=== PATIENT | male | born 1995 | race Hispanic/Latino ===

== ENCOUNTER 2017-09-27 18:13 | Emergency (ER) | payer SELFPAY ==
[2017-09-27] MEDS ORDERED: FENTANYL CITR 100 MCG/2 ML ONE (18:28)
[2017-09-27] MEDS ORDERED: ONDANSETRON 4 MG/2 ML VIAL ONE (18:28)
[2017-09-27] MEDS ORDERED: NA CHLORIDE 0.9% 2,000 ML ONE (18:28)
[2017-09-27] MEDS ORDERED: MORPHINE 10 MG/ML VIAL ONE (19:02)
[2017-09-27] MEDS ORDERED: TETANUS & DIPHTHERIA TOX,ADULT 0.5 ML VIAL ONE (19:03)
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
[2017-09-27 19:19] LABS: Absolute Lymphocytes (CBC) 3.8 K/uL (0.7-4.9); Absolute Neutrophil 14.6 K/uL (1.8-8.0); Basophils % 0.3 % (0-1.3); Eosinophils % 0.6 % (0-4.4); Hematocrit 46.4 % (39.6-49.0); Lymphocytes % 19.5 % (15.3-44.8); MCH 28.8 pg (27.0-35.0); MCV 85.3 fL (80-100); MPV 8.1 fL (7.6-11.3); Monocytes % 4.9 % (3.3-12.3); RBC Red Blood Cell Count 5.45 M/uL (4.33-5.43)
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
[2017-09-27 19:28] LABS: Glomerular Filtration Rate > 60 mL/min (>60); Potassium 3.2 mEq/L (3.6-5.0)
[2017-09-27] MEDS ORDERED: CEFAZOLIN/SWI 1gm 1 GM/10 ML SYR ONE (19:29)
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
== END 2017-09-27 20:25 | disposition short-term general hospital (02) ==
LOC: ER 18:13
DX: S06.5X0A Traumatic subdural hemorrhage without loss of consciousness, initial encounter (principal); S02.40EA Zygomatic fracture, right side, initial encounter for closed fracture; S02.81XA Fracture of other specified skull and facial bones, right side, initial encounter for closed fracture; V28.4XXA Motorcycle driver injured in noncollision transport accident in traffic accident, initial encounter; Z23 Encounter for immunization; Z72.0 Tobacco use
CPT/HCPCS: 36415; 70450; 70486; 71045; 71260; 72125; 74177; 76377; 80048; 85025; 86850; 86900; 86901; 90714; 96361; 96365; 96375; 99285; J0690; J2405; J3010; J7030; Q9967

== ENCOUNTER 2017-12-25 06:15 | Emergency (ER) | payer SELFPAY ==
--- NOTE | 2017-12-25 08:11 | RAD REPORT ---
EXAM DESCRIPTION: CT - Head Brain Wo Cont - 12/25/2017 7:01 am CLINICAL HISTORY: previous hemorrhage;Headache COMPARISON: Facial Bones W/ Mpr dated 09/27/2017; Head Brain Wo Cont dated 11/07/2015Facial Bones W/ M pr dated 09/27/2017; Head Brain Wo Cont dated 11/07/2015; Head C Spine Cap W Con dated 09/27/2017 TECHNIQUE: All CT scans are performed using dose optimization technique as appropriate and may inclu de automated exposure control or mA/KV adjustment according to patient size. FINDINGS: No intracranial hemorrhage, hydrocephalus or extra-axial fluid collection.No areas of brai n edema or evidence of midline shift. The paranasal sinuses and mastoids are clear. The calvarium is intact. IMPRESSION: No acute intracranial abnormality.
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
== END 2017-12-25 08:24 | disposition home or self-care (01) ==
LOC: ER 06:15
DX: G43.909 Migraine, unspecified, not intractable, without status migrainosus (principal); Z87.820 Personal history of traumatic brain injury; Z72.0 Tobacco use
CPT/HCPCS: 70450; 99284

== ENCOUNTER 2018-05-03 20:47 | Emergency (ER) | payer SELFPAY ==
[2018-05-03] MEDS ORDERED: LIDOCAINE 1% MPF 2 ML AMPULE ONE (21:45)
[2018-05-03] MEDS ORDERED: TETANUS & DIPHTHERIA TOX,ADULT 0.5 ML VIAL ONE (21:48)
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
--- NOTE | 2018-05-03 22:58 | EDPHYS ---
Physician Documentation [facility] Name: Jeffrey Anna Age: 22 yrs Sex: Male : 1995 Arrival Date: 05/03/2018 Time: 20:54 Bed 24 Private MD: ED Physician Ham Gilman HPI: 05/03 21:20 This 22 yrs old Male presents to ER via Ambulatory with complaints of jmm Laceration. 21:20 The patient or guardian reports injury. Onset: The symptoms/episode began/occurred jmm acutely, just prior to arrival. Modifying factors: The symptoms are alleviated by nothing, the symptoms are aggravated by nothing. Associated signs and symptoms: Pertinent positives: pain. 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 Patient unsure on tetanus status. Denies other injury. Historical: - Allergies: 20:55 No Known Allergies; aj1 - Home Meds: 20:55 None [Active]; aj1 - PMHx: 20:55 traumatic subdural hematoma; aj1 - PSHx: 20:55 None; aj1 - Immunization history:: Flu vaccine is up to date. - Social history:: Smoking status: Patient uses tobacco products, denies chronic smoking, but will smoke occasionally. - Ebola Screening: : Patient denies travel to an Ebola-affected area in the 21 days before illness onset. ROS: 21:20 Constitutional: Negative for fever, chills, and weight loss, Cardiovascular: Negative jmm for chest pain, palpitations, and edema, Respiratory: Negative for shortness of breath, cough, wheezing, and pleuritic chest pain. 21:20 MS/extremity: Positive for laceration. 21:20 Skin: Positive for laceration(s). 21:20 All other systems are negative. Exam: 21:20 Constitutional: This is a well developed, well nourished patient who is awake, alert, jmm and in no acute distress. Head/Face: atraumatic. Eyes: EOMI, no conjunctival erythema appreciated ENT: Moist Mucus Membranes Neck: Trachea midline, Supple Chest/axilla: Normal chest wall appearance and motion. Cardiovascular: Regular rate and rhythm. No edema appreciated Respiratory: Normal respirations, no respiratory distress appreciated Abdomen/GI: Non distended, soft 21:20 Musculoskeletal/extremity: FROM appreciated to the left thumb, pain on extension, < 2 sec dist cap refill, full radial pulse, NVI. 21:20 Skin: 3 cm laceration noted to the left wrist. 21:20 Neuro: Orientation: is normal, Mentation: is normal, Memory: is normal. 21:20 Psych: Behavior/mood is pleasant, cooperative. 22:54 Musculoskeletal/extremity: Decreased sensation noted to the left thumb, motor function jmm intact. Vital Signs: 20:55 BP 143 / 85; Pulse 97; Resp 18; Temp 98.2; Pulse Ox 99% ; Weight 96.62 kg (R); Height 6 aj1 ft. 1 in. (185.42 cm) (R); Pain 9/10; 22:53 BP 139 / 65; Pulse 86; Resp 16; Pulse Ox 97% on R/A; jb5 20:55 Body Mass Index 28.10 (96.62 kg, 185.42 cm) aj1 Laceration: 22:54 Wound Repair of 4cm ( 1.6in ) subcutaneous laceration to lateral aspect of left wrist. jmm Distal neuro/vascular/tendon intact. Anesthesia: Local anesthetic administered with 4 mls of 1% lidocaine. Wound prep: Moderate cleansing with betadine by me. Skin closed with 7 4-0 Prolene using simple sutures and sterile technique. Patient tolerated well. MDM: 21:50 Patient medically screened. [facility] 22:54 Data reviewed: vital signs, nurses notes. ED course: Patient has decreased sensation to jmm the left thumb, motor function intact. Patient has a possible injury of superficial branch of the radial nerve. Patient advised of the need to follow up with hand surgery. Patient otherwise given wound infection return precautions. Patient understood and agrees with the plan of care.. 22:54 Counseling: I had a detailed discussion with the patient and/or guardian regarding: the [facility] historical points, exam findings, and any diagnostic results supporting the discharge/admit diagnosis, the need for outpatient follow up, to return to the emergency department if symptoms worsen or persist or if there are any questions or concerns that arise at home. Administered Medications: 21:58 Drug: Tetanus-Diphtheria Toxoid Adult 0.5 ml {Digital Research Analyst: [employer]. Exp: mg2 06/02/2020. Lot #: [id number]. } Route: IM; Site: left deltoid; 23:16 Follow up: Response: No adverse reaction mg2 Disposition: 05/04 05:41 Co-signature as Attending Physician, Ham Gilman MD I agree with the assessment and tw4 plan of care. Disposition: 05/03/18 22:57 Discharged to Home. Impression: Wrist Laceration. - Condition is Stable. - Discharge Instructions: Laceration Care, Adult. - Medication Reconciliation Form, Thank You Letter, Antibiotic Education, Prescription Opioid Use form. - Follow up: Shayne Miller MD; When: 1 week; Reason: Recheck today's complaints, Continuance of care, Staple/Suture removal, Re-evaluation by your physician. Signatures: Cristine Garcia RN RN aj1 Abebe Sparks PA PA Ham Hicks MD MD tw4 Mikal Hanley RN RN mg2 Corrections: (The following items were deleted from the chart) 05/03 23:16 22:57 05/03/2018 22:57 Discharged to Home. Impression: Wrist Laceration. Condition is mg2 Stable. Forms are Medication Reconciliation Form, Thank You Letter, Antibiotic Education, Prescription Opioid Use. Follow up: Shayne Miller; When: 1 week; Reason: Recheck today's complaints, Continuance of care, Staple/Suture removal, Re-evaluation by your physician. sergio
== END 2018-05-03 23:16 | disposition home or self-care (01) ==
LOC: ER 20:47
PROC: 0JQH0ZZ Repair Left Lower Arm Subcutaneous Tissue and Fascia, Open Approach (ICD-10-PCS; principal; 2018-05-03)
DX: S61.512A Laceration without foreign body of left wrist, initial encounter (principal); Z23 Encounter for immunization; W26.0XXA Contact with knife, initial encounter; Z72.0 Tobacco use
CPT/HCPCS: 90714; 99284; J2001

== ENCOUNTER 2019-10-04 22:23 | Emergency (ER) | payer SELFPAY ==
[2019-10-04] MEDS ORDERED: TETRACAINE HCL 0.5% 4ML OPTH ONE (23:14)
[2019-10-04] MEDS ORDERED: FLUORESCEIN SODIUM 1 MG/WRAP ONE (23:14)
--- NOTE | 2019-10-04 23:52 | ER ---
Nurse's Notes [facility] Name: Jeffrey Anna Age: 23 yrs Sex: Male : 1995 Arrival Date: 10/04/2019 Time: 22:26 Bed 14 Private MD: Diagnosis: Conjunctivitis-right eye Presentation: 10/03 22:33 Chief complaint: Patient states: "my right eye started to really hurt about the time I jd3 was leaving work. 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 I tried using eye drops and showering and it has just gotten more painful and more blurry.". Coronavirus screen: Proceed with normal triage. Ebola Screen: Patient negative for fever greater than or equal to 101.5 degrees Fahrenheit, and additional compatible Ebola Virus Disease symptoms. Initial Sepsis Screen: Does the patient meet any 2 criteria? No. Patient's initial sepsis screen is negative. Does the patient have a suspected source of infection? No. Patient's initial sepsis screen is negative. Risk Assessment: Do you want to hurt yourself or someone else? Patient reports no desire to harm self or others. Onset of symptoms was October 04, 2019. 22:33 Method Of Arrival: Ambulatory [facility] 22:33 Acuity: PILAR 4 jd3 Triage Assessment: 23:46 General: Appears in no apparent distress. uncomfortable, Behavior is calm, cooperative, vc appropriate for age. Pain: Complains of pain in right eye. 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 - Social history:: Smoking status: Patient reports the use of cigarette tobacco products, smokes one-half pack cigarettes per day. Screenin:40 Abuse screen: Denies threats or abuse. Nutritional screening: No deficits noted. vc Tuberculosis screening: No symptoms or risk factors identified. Fall Risk None identified. Assessment: 22:40 General: Appears in no apparent distress. Behavior is calm, cooperative, appropriate vc for age. Pain: Complains of pain in right eye Alleviated by rest. Neuro: Level of Consciousness is awake, alert, obeys commands, Oriented to person, place, time, situation, Appropriate for age. Cardiovascular: Patient's skin is warm and dry. Respiratory: Airway is patent Respiratory effort is even, unlabored, Respiratory pattern is regular, symmetrical. GI: No deficits noted. : No signs and/or symptoms were reported regarding the genitourinary system. EENT: Reports pain in right eye photophobia. Derm: Skin temperature is warm. Musculoskeletal: Circulation, motion, and sensation intact. Capillary refill < 3 seconds, Range of motion: intact in all extremities. 23:50 Reassessment: Patient appears in no apparent distress at this time. Patient and/or vc family updated on plan of care and expected duration. Pain level reassessed. Patient is alert, oriented x 3, equal unlabored respirations, skin warm/dry/pink. Patient states symptoms have not improved. Vital Signs: 22:36 BP 151 / 92; Pulse 82; Resp 18 S; Temp 98.6(O); Pulse Ox 98% on R/A; Weight 113.4 kg jd3 (R); Height 6 ft. 3 in. (190.50 cm) (R); Pain 9/10; 10/04 00:02 BP 133 / 73; Pulse 65; Resp 17; Pulse Ox 99% on R/A; vc 10/03 22:36 Body Mass Index 31.25 (113.40 kg, 190.50 cm) jd3 Visual Acuity: 10/03 23:03 Left Eye Visual acuity 20/20, ; Right Eye Visual acuity 20/70, ; Both Eyes Visual vc acuity 20/25; With Lenses; ED Course: 22:26 Patient arrived in ED. cl3 22:33 Walter Squires PA is PHCP. cp 22:33 Orly Olivier MD is Attending Physician. cp 22:35 Triage completed. jd3 22:37 Arm band placed on. jd3 22:40 Patient has correct armband on for positive identification. Bed in low position. Call vc light in reach. Side rails up X 1. Pulse ox on. NIBP on. 22:58 Marybeth Portillo, ANA is Primary Nurse. vc 23:40 Assist provider with eye exam of right eye. using fluorescein stain, Performed by Walter VARELA Patient tolerated well. 23:50 Abilio Vazquez MD is Referral Physician. mane 10/04 00:10 Patient did not have IV access during this emergency room visit. IV discontinued. vc Administered Medications: 10/03 23:40 Drug: Tetracaine Drops 0.5 % 1 drops Route: Ophthalmic; Site: right eye; vc 10/04 00:01 Drug: Gentamicin Drops 0.3 % 2 drops Route: Ophthalmic; Site: right eye; vc 00:09 Follow up: Response: No adverse reaction vc Outcome: 10/03 23:51 Discharge ordered by . cp 10/04 00:10 Discharged to home ambulatory. vc Condition: good Discharge instructions given to patient, Instructed on discharge instructions, follow up and referral plans. medication usage, Demonstrated understanding of instructions, follow-up care, medications, Prescriptions given X 1. 00:20 Patient left the ED. vc Signatures: Walter Squires PA PA cp Davies, Jonathon, RN RN Kathy Pickett cl3 Marybeth Portillo RN RN vc
--- NOTE | 2019-10-04 23:52 | EDPHYS ---
Physician Documentation [facility] Name: Jeffrey Anna Age: 23 yrs Sex: Male : 1995 Arrival Date: 10/04/2019 Time: 22:26 Bed 14 Private MD: ED Physician Orly Olivier HPI: 10/03 22:48 This 23 yrs old Male presents to ER via Ambulatory with complaints of Eye Pain.cp 22:48 The patient is experiencing foreign body sensation, pain, to the right eye, caused by cp an unknown mechanism. Onset: The symptoms/episode began/occurred today. Duration: the symptoms are continuous. Associated signs and symptoms: Pertinent negatives: drainage from eye. Patient wears glasses. 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 - Social history:: Smoking status: Patient reports the use of cigarette tobacco products, smokes one-half pack cigarettes per day. ROS: 22:55 Eyes: Positive for foreign body sensation, pain, redness, of the right eye, Negative cp for injury or acute deformity. 22:55 Constitutional: Negative for fever. cp 22:55 ENT: Negative for drainage from ear(s), ear pain, sore throat, difficulty swallowing, difficulty handling secretions. 22:55 Respiratory: Negative for cough, shortness of breath, wheezing. 22:55 Abdomen/GI: Negative for abdominal pain, nausea and vomiting. 22:55 Neuro: Negative for headache. 22:55 All other systems are negative. Exam: 23:40 Constitutional: The patient appears in no acute distress, alert, awake, non-toxic, well cp developed, well nourished, uncomfortable. 23:40 Head/Face: Normocephalic, atraumatic. cp 23:40 Eyes: Periorbital structures: appear normal, Pupils: equal, round, and reactive to light and accomodation, Extraocular movements: intact throughout, Conjunctiva: exudate, in the right eye, injected, in the right eye, Corneas: abrasion, is not appreciated, foreign body, is not appreciated, a fluorescein strip employed to appreciate the findings, Anterior chamber: normal, Lids and lashes: appear normal, bilaterally, Examination of the other eye reveals no obvious gross abnormality, left eye. 23:40 ENT: External ear(s): are unremarkable, Nose: is normal, Mouth: is normal. 23:40 Chest/axilla: Inspection: normal. 23:40 Cardiovascular: Rate: normal. 23:40 Respiratory: the patient does not display signs of respiratory distress, Respirations: normal. 23:40 Skin: cellulitis, is not appreciated, no rash present. Vital Signs: 22:36 BP 151 / 92; Pulse 82; Resp 18 S; Temp 98.6(O); Pulse Ox 98% on R/A; Weight 113.4 kg jd3 (R); Height 6 ft. 3 in. (190.50 cm) (R); Pain 9/10; 10/04 00:02 BP 133 / 73; Pulse 65; Resp 17; Pulse Ox 99% on R/A; vc 10/03 22:36 Body Mass Index 31.25 (113.40 kg, 190.50 cm) jd3 Visual Acuity: 10/03 23:03 Left Eye Visual acuity 20/20, ; Right Eye Visual acuity 20/70, ; Both Eyes Visual vc acuity 20/25; With Lenses; MDM: 22:44 Patient medically screened. cp 23:50 Data reviewed: vital signs, nurses notes, I have discussed the patient's cp presentation/case with the attending Emergency Department Physician; and as a result, I will discharge patient. 23:50 Counseling: I had a detailed discussion with the patient and/or guardian regarding: the cp historical points, exam findings, and any diagnostic results supporting the discharge/admit diagnosis, the need for outpatient follow up, an opthalmologist, to return to the emergency department if symptoms worsen or persist or if there are any questions or concerns that arise at home. Response to treatment: the patient's symptoms have markedly improved after treatment. 10/03 22:48 Order name: Visual Acuity; Complete Time: 23:16 cp 10/03 22:48 Order name: Eye Tray; Complete Time: 23:16 cp 10/03 22:48 Order name: Fluoresene Opth strip; Complete Time: 23:16 cp Administered Medications: 23:40 Drug: Tetracaine Drops 0.5 % 1 drops Route: Ophthalmic; Site: right eye; vc 10/04 00:01 Drug: Gentamicin Drops 0.3 % 2 drops Route: Ophthalmic; Site: right eye; vc 00:09 Follow up: Response: No adverse reaction vc Disposition: 00:25 Chart complete. cp 02:18 Co-signature as Attending Physician, Orly Olivier MD. ma2 Disposition: 10/04/19 23:51 Discharged to Home. Impression: Conjunctivitis - right eye. - Condition is Stable. - Discharge Instructions: Bacterial Conjunctivitis. - Prescriptions for Gentamicin 0.3 % Ophthalmic Drops - instill 1 drop by OPHTHALMIC route every 4 hours for 7 days; 1 bottle. - Medication Reconciliation Form, Thank You Letter, Antibiotic Education, Prescription Opioid Use, Work release form form. - Follow up: Abilio Vazquez MD; When: 1 - 2 days; Reason: symptoms continue. - Problem is new. - Symptoms have improved. Signatures: Walter Squires PA PA cp Davies, Jonathon, RN RN jd3 Orly Olivier MD MD ma2 Marybeth Portillo RN RN vc Corrections: (The following items were deleted from the chart) 00:20 10/03 23:51 10/04/2019 23:51 Discharged to Home. Impression: Conjunctivitis - right vc eye. Condition is Stable. Forms are Medication Reconciliation Form, Thank You Letter, Antibiotic Education, Prescription Opioid Use. Follow up: Abilio Vazquez; When: 1 - 2 days; Reason: symptoms continue. Problem is new. Symptoms have improved. cp
[2019-10-05] MEDS ORDERED: GENTAMICIN 0.3% OPTH DROP 5ML ONE (00:01)
[2019-10-05 00:57] VITALS: TEMP 98.6
[2019-10-05 00:58] VITALS: BP 133/73; O2SAT 99
== END 2019-10-05 00:20 | disposition home or self-care (01) ==
LOC: ER 22:23
DX: H10.9 Unspecified conjunctivitis (principal); F17.210 Nicotine dependence, cigarettes, uncomplicated
CPT/HCPCS: 99284

== ENCOUNTER 2020-11-28 13:12 | Emergency (ER) | payer SELFPAY ==
--- OUTSIDE RECORDS SUMMARY | 2020-11-28 13:15 | XMS REPORT | Continuity of Care Document ---
:1995 Author Organization [facility] t Address [address] [place] [address] Care Team Providers Name Role Phone Manny Dumont Attending Clinician Payers Payer Name Policy Type Policy Number Effective Date Expiration Date S ource Problems This patient has no known problems. Allergies, Adverse Reactions, Alerts Allergy Allergy Status Severity Reaction(s) Onset Inactive Treating Comm ents Source Name Type Date Date Clinician No Known DA Active U [facility] 08-15 [place] Allergie 00:00: d s [address] [place] [address] Medications This patient has no known medications. Procedures This patient has no known procedures. Encounters Start End Encounter Admission Attending Care Care Encounter Source Date/Time Date/Time Type Type Clinicians Facility Department ID 2020-11-08 2020-11-08 Emergency Tavia [facility] [id number] 15:08:00 16:50:00 Marlin Portillo [id number] [place] [id number] [place] [id number] Results Test Description Test Time Test Comments Results Result Comments Source DRUGS OF ABUSE SCREEN UR 2020-09-13 17:50:00 Test Item Value Reference Range Interpretation Comme nts URN COCAINE (test code = NEGATIVE NEGATIVE Gordy chichi cut-off concentration: 300 COCAURN) ng/mL URN CANNABINOIDS (test code = NEGATIVE NEGATIVE Cannabinoids cut-off concentration: CANNABURN) 50 ng/mL URN AMPHETAMINE (test code = NEGATIVE NEGATIVE Amphetamine cut-off concentration: AMPHETURN) 1000 ng/mL URN BARBITURATE (test code = NEGATIVE NEGATIVE Barbiturate cut-off concentration: BARBITURN) 200 ng/mL URN BENZODIAZEPINE (test code NEGATIVE NEGATIVE Benzodiazepine cut-off = BENZOURN) concentration: 200 ng/mL URN OPIATES (test code = POSITIVE NEGATIVE A [facility] ONFIRMED INITIAL SCREENING ONLY; OPIATURN) SUGGEST ADDITIO NALCONFIRMATORY TESTING.Opiates cut-off concentration: 2000 ng/mL URN PHENCYCLIDINE (PCP) (test NEGATIVE NEGATIVE Phencyclidine(PCP) cut-off code = PHENCURN) concentrati on: 25 ng/ml URN METHADONE (test code = NEGATIVE NEGATIVE M ethadone cut-off concentration: 300 METHAURN) ng/mL UA RFLX MICR CULT IF [id number] 03:02:00 Test Item Value Reference Range Interpretation Comments UA GLUCOSE DIPSTICK NORMAL mg/dl NORMAL (test code = DGLUU) UA BILIRUBIN DIPSTICK NEGATIVE mg/dL NEGATIVE (test code = BILU) UA KETONE DIPSTICK NEGATIVE mg/dl NEGATIVE (test code = KETU) UA SPECIFIC GRAVITY 1.015 1.000-1.030 (test code = SGU) UA BLOOD DIPSTICK 10 Baldo/micL NEGATIVE A (test code = RILEY) Baldo/micL UA PH DIPSTICK (test 6.0 5.0-9.0 code = ANDRES) UA PROTEIN DIPSTICK NEGATIVE mg/dl NEGATIVE (test code = PROU) UA UROBILINIOGEN NORMAL mg/dl NORMAL DIPSTICK (test code = URO) UA NITRITE DIPSTICK NEGATIVE NEGATIVE (test code = ROSI) UA LEUKOCYTE ESTERASE NEGATIVE NEGATIVE DIPSTICK (test code = Wilson/micL LEUU) UA WBC (test code = 0-3 WBC/HPF NONE WBCU) UA SQUAMOUS CELLS 5-10 #/hpf (test code = SQU) UA CULTURE NEEDED? NO, WBC<10 Culture Chk Criteria not (test code = UACULT) Criteria met, Ur ine Culture cancelled. Indication for culture: Flank PainSpecimen Description: CLEAN CATCHUA RFLX MICR CULT IF [id number] 02:37:00 Test Item Value Reference Range Interpretation Comments UA GLUCOSE DIPSTICK (test NORMAL mg/dl NORMAL code = DGLUU) UA BILIRUBIN DIPSTICK NEGATIVE mg/dL NEGATIVE (test code = BILU) UA KETONE DIPSTICK (test NEGATIVE mg/dl NEGATIVE code = KETU) UA SPECIFIC GRAVITY (test 1.015 1.000-1.030 code = SGU) UA BLOOD DIPSTICK (test 10 Baldo/micL Baldo/micL NEGATIVE A code = RILEY) UA PH DIPSTICK (test code 6.0 5.0-9.0 = ANDRES) UA PROTEIN DIPSTICK (test NEGATIVE mg/dl NEGATIVE code = PROU) UA UROBILINIOGEN DIPSTICK NORMAL mg/dl NORMAL (test code = URO) UA NITRITE DIPSTICK (test NEGATIVE NEGATIVE code = ROSI) UA LEUKOCYTE ESTERASE NEGATIVE Wilson/micL NEGATIVE DIPSTICK (test code = LEUU) UA WBC (test code = WBCU) WBC/HPF NONE UA CULTURE NEEDED? (test Criteria Culture Chk code = UACULT) Indication for culture: Flank PainSpecimen Description: CLEAN CATCHCBC W/AUTO [id number] 16:17:00 Test Item Value Reference Range Interpretation Comments WHITE BLOOD CELL (test code = 7.3 K/mm3 4.5-11.0 N WBC) RED BLOOD CELL (test code = 5.00 M/mm3 4.40-5.90 N RBC) HEMOGLOBIN (test code = HGB) 13.9 gm/dL 13.0-17.0 N HEMATOCRIT (test code = HCT) 43.1 % 36.0-48.0 N MEAN CELL VOLUME (test code = 86.2 UM3 80.0-94.0 N MCV) MEAN CELL HGB (test code = MCH) 27.8 UUG 25.5-32.5 N MEAN CELL HGB CONCETRATION 32.3 gm/dL 29.0-35.5 N (test code = MCHC) RED CELL DISTRIBUTION WIDTH 14.2 % 11.5-15.0 N (test code = RDW) RED CELL DISTRIBUTION WIDTH SD 44.1 fL 34.8-50.2 N (test code = RDW-SD) PLATELET COUNT (test code = 303 K/mm3 150-400 N PLT) MEAN PLATELET VOLUME (test code 9.1 fl 7.4-10.4 N = MPV) NEUTROPHIL % (test code = NT%) 47.9 % 49.0-76.0 L IMMATURE GRANULOCYTE % (test 0.3 % 0.0-0.4 N code = IG%) LYMPHOCYTE % (test code = LY%) 38.8 % 23.0-38.0 H MONOCYTE % (test code = MO%) 8.6 % 1.0-10.0 N EOSINOPHIL % (test code = EO%) 4.1 % 1.0-5.0 N BASOPHIL % (test code = BA%) 0.3 % 0.0-1.0 N NUCLEATED RBC % (test code = 0.0 % 0.0-0.1 N NRBC%) NEUTROPHIL # (test code = NT#) 3.5 K/mm3 2.4-6.3 N IMMATURE GRANULOCYTE # (test 0.02 x10 3/uL 0.00-0.07 N code = IG#) LYMPHOCYTE # (test code = LY#) 2.8 K/mm3 1.2-4.0 N MONOCYTE # (test code = MO#) 0.6 K/mm3 0.0-0.6 N EOSINOPHIL # (test code = EO#) 0.3 K/MM3 0.0-0.7 N BASOPHIL # (test code = BA#) 0.0 K/mm3 0.0-0.2 N NUCLEATED RBC # (test code = 0.00 X10 3uL 0.00-0.01 N NRBC#) COMPREHENSIVE METABOLIC [id number] 15:56:00 Test Item Value Reference Range Interpretation Comments SODIUM (test code = NA) 135 mmol/l 134.0-147.0 N POTASSIUM (test code = K) 4.4 mmol/L 3.6-5.2 N CHLORIDE (test code = CL) 103 mmol/l 98.0-107.0 N CARBON DIOXIDE (test code = CO2) 27.0 mmol/l 21.0-33.0 N ANION GAP (test code = GAP) 9.4 0-20 N GLUCOSE (test code = GLU) 87 mg/dl 70.0-110.0 N BLOOD UREA NITROGEN (test code = 12 mg/dl 7.0-18.0 N BUN) CREATININE (test code = CREAT) 0.97 mg/dL 0.60-1.30 N GFR NON BLACK (test code = 101 mL/min 110-120 L GFRNONBLACK) GFR BLACK (test code = GFRBLACK) 122 mL/min 133-145 L TOTAL PROTEIN (test code = PROT) 7.4 gm/dL 6.4-8.2 N ALBUMIN (test code = ALB) 3.8 gm/dl 3.2-4.7 N CALCIUM (test code = CA) 8.4 mg/dl 8.0-10.5 N BILIRUBIN TOTAL (test code = 0.4 mg/dl 0.0-1.0 N BILT) SGOT/AST (test code = AST) 24 Units/L 15-37 N SGPT/ALT (test code = ALT) 29 Units/L 12.0-78.0 N ALKALINE PHOSPHATASE TOTAL (test 61 Units/L 50.0-136.0 N code = ALKP) COMPREHENSIVE METABOLIC [id number] 15:49:00 Test Item Value Reference Range Interpretation Comments SODIUM (test code = NA) 135 mmol/l 134.0-147.0 N POTASSIUM (test code = K) 4.4 mmol/L 3.6-5.2 N CHLORIDE (test code = CL) 103 mmol/l 98.0-107.0 N CARBON DIOXIDE (test code = CO2) 27.0 mmol/l 21.0-33.0 N ANION GAP (test code = GAP) 9.4 0-20 N GLUCOSE (test code = GLU) mg/dl 70.0-110.0 BLOOD UREA NITROGEN (test code = mg/dl 7.0-18.0 BUN) CREATININE (test code = CREAT) mg/dL 0.60-1.30 GFR NON BLACK (test code = mL/min 110-120 GFRNONBLACK) GFR BLACK (test code = GFRBLACK) mL/min 133-145 TOTAL PROTEIN (test code = PROT) gm/dL 6.4-8.2 ALBUMIN (test code = ALB) gm/dl 3.2-4.7 CALCIUM (test code = CA) mg/dl 8.0-10.5 BILIRUBIN TOTAL (test code = mg/dl 0.0-1.0 BILT) SGOT/AST (test code = AST) Units/L 15-37 SGPT/ALT (test code = ALT) Units/L 12.0-78.0 ALKALINE PHOSPHATASE TOTAL (test Units/L 50.0-136.0 code = ALKP) - CT L-SPINE W/O [id number] 14:16:00 [facility] : 1995 Sex: M FAX: Thor Chen [employer] [phone] Ariel: St: REG Name: STEWART,KENTON FABIEN [facility] : 1995 Age/S: 24/M [address] [facility] Unit: [id number] Loc: E.[address] Phys: Abram Chen [id number] Acct: [id number] Dis Date: Status: REG ER PHONE #: [phone] Exam Date: 09/12/2020 1402 FAX #: [phone] Reason: low back pain EXAMS: CPT CODE: [id number] CT L- SPINE W/O CONTRAST [id number] Dictation location: H37. CT LUMBAR SPINE WITHOUT CONTRAST; SAGITTAL AND CORONAL REFORMATTED VIEWS. HISTORY: low back pain COMPARISON :None. TECHNIQUE: Axial CT images of the lumbar spine were obtained with coronal and sagittal reformatted views. Automated exposure control, iterative reconstruction technique, and/or adjustment of mA and/or kV according to patient's size was utilized for radiation dose reduction. IV CONTRAST: None. FINDINGS: 5 nonrib-bearing lumbar vertebral bodies are noted. The lumbar vertebral alignment is straightened. No lumbar spine fracture or subluxation. No prevertebral soft tissue swelling. At L2-L3, posterior bulging annulus causes up to mild spinal canal stenosis without significant neuroforaminal narrowing. At L4-L5, posterior bulging annulus causes upto moderate spinal canal stenosis and neuroforaminal narrowing. There could be a potential central disc herniation at this level. At L5-S1, minimal posterior bulging annulus narrows the right lateral recess with no significant spinal canal stenosis and moderate tosevere right neuroforaminal narrowing. IMPRESSION: Lower lumbar spondylosis greatest at L4-L5 with moderate spinal canal stenosis. Potential central disc protrusion at this level. This may be further characterized with an outpatient MRI lumbar spine asneeded. Moderate to severe right neuroforaminal narrowing at L5-S1. PAGE 1 Signed Report (CONTINUED) FAX: Thor Chen NP [phone] Ariel: St: REG Name: KENTON STEWART [facility] : 1995 Age/S: 24/M [address] [facility] Unit: [id number] Loc: E.[facility] [place], [place]: [place] [id number] Acct: [id number] Dis Date: Status: REG ER PHONE #: [phone] Exam Date: 09/12/2020 1402 FAX #: [phone] Reason: low back pain EXAMS: CPT CODE: [id number] CT L-SPINE W/O CONTRAST [id number]<Continued> at 1416 Reported and signed by: Carola Ramirez M.D. CC: Thor Chen NP Technologist: Paulette Foote Trnscrd Dt/Tm: 09/12/2020 (9721) [id number] Orig Print D/T: S: 09/12/2020 (1419 PAGE 2 Signed Report
[2020-11-28 13:42] LABS: Absolute Lymphocytes (CBC) 2.5 K/uL (0.7-4.9); Basophils % 0.5 % (0-1.3); Hematocrit 38.8 % (39.6-49.0); Lymphocytes % 33.4 % (15.3-44.8); MPV 7.6 fL (7.6-11.3); RBC Red Blood Cell Count 4.65 M/uL (4.33-5.43)
--- NOTE | 2020-11-28 13:57 | RAD REPORT ---
EXAM DESCRIPTION: CT - Spine Lumbar Wo Con - 11/28/2020 1:41 pm CLINICAL HISTORY: Radiculopathy. LOWER BACK PAIN COMPARISON: No comparisons TECHNIQUE: Axial noncontrast CT imaging of the lumbar spine was performed with coronal and sagittal re-formatted images. All CT scans are performed using dose optimization technique as appropriate and may include automated exposure control or mA/KV adjustment according to patient size. FINDINGS: No acute lumbar spine fracture seen. No aggressive marrow pattern or malalignment. Paraspinal tissues are normal in thickness. No paraspinal abscess or hematoma seen. Prominent bulging of disc material is noted at L4-5 and L5-S1. A disc herniation may be present at L4 -5. IMPRESSION: No acute lumbar spine abnormality. Prominent spondylosis is noted at L4-5 and L5-S1. There is a disc herniation likely present at L4-5.
[2020-11-28] MEDS ORDERED: NA CHLORIDE 0.9% 1,000 ML ONE (13:59)
[2020-11-28] MEDS ORDERED: dexAMETHasone 10 MG/ML VIAL ONE (13:59)
[2020-11-28] MEDS ORDERED: MORPHINE 4 MG/ML SYR ONE (13:59)
[2020-11-28 14:02] LABS: BUN Blood Urea Nitrogen 8 mg/dL (7-18); Bicarbonate 22 mmol/L (21-32); Glucose Level 93 mg/dL (74-106); Potassium 3.9 mmol/L (3.5-5.1); Sodium Level 139 mmol/L (136-145)
[2020-11-28 14:16] LABS: Urine Blood Trace-intact (Negative); Urine Glucose Negative (Negative); Urine Protein Negative (Negative); Urine pH 6.5 (5.0-7.0)
[2020-11-28 14:36] LABS: Urine Bacteria <20 /HPF (NONE SEEN); Urine RBC <5 /HPF (NONE SEEN)
[2020-11-28] MEDS ORDERED: KETOROLAC 30 MG/ML INJ ONE (15:04)
[2020-11-28] MEDS ORDERED: MEPERIDINE HCL 25 MG/ML SYR ONE (15:44)
--- NOTE | 2020-11-28 16:32 | EDPHYS ---
Physician Documentation [facility] Name: Jeffrey Anna Age: 25 yrs Sex: Male : 1995 Arrival Date: 11/28/2020 Time: 13:20 Bed 26 Private MD: ED Physician Jw Wall HPI: 11/28 13:30 This 25 yrs old Male presents to ER via EMS with complaints of Low Back Pain. cp Historical: - Allergies: 13:50 Chronic Back Pain; kg - PMHx: 13:45 traumatic subdural hematoma; kg - Immunization history:: Adult Immunizations not up to date, Client reports having NOT received the Covid vaccine. - Social history:: Smoking status: Patient reports the use of cigarette tobacco products, denies chronic smoking, but will smoke occasionally. Vital Signs: 13:20 BP 139 / 76; Pulse 56; Resp 20; Temp 97.8(O); Pulse Ox 93% on R/A; Weight 117.93 kg kg (R); Height 6 ft. 3 in. (190.50 cm) (R); Pain 10/10; 13:45 BP 144 / 87; Pulse 55; Resp 20; Pulse Ox 93% on R/A; kg 14:30 BP 133 / 72; Pulse 45; Resp 20; Pulse Ox 98% on R/A; kg 14:45 BP 129 / 83; Pulse 54; Resp 20; Pulse Ox 99% on R/A; kg 15:30 BP 151 / 80; Pulse 49; Resp 20; Pulse Ox 100% on R/A; kg 16:00 BP 132 / 71; Pulse 52; Resp 20; Pulse Ox 99% on R/A; kg 16:30 BP 125 / 72; Pulse 52; Resp 20; Pulse Ox 100% ; kg 13:20 Body Mass Index 32.50 (117.93 kg, 190.50 cm) kg MDM: 13:46 Patient medically screened. cp 11/28 13:25 Order name: BMP; Complete Time: 14:36 cp 11/28 14:36 Interpretation: Normal except: CL 110. cp 11/28 13:25 Order name: CBC with Diff; Complete Time: 14:01 cp 11/28 14:36 Interpretation: Normal except: HGB 13.0; HCT 38.8. cp 11/28 13:25 Order name: CT Lumbar Spine Wo Con; Complete Time: 14:01 cp 11/28 14:02 Order name: Urine Microscopic Only; Complete Time: 15:10 cp 11/28 14:16 Order name: Urine Dipstick-Ancillary; Complete Time: 14:36 EDMS 11/28 13:25 Order name: IV; Complete Time: 13:28 cp 11/28 14:02 Order name: Urine Dipstick-Ancillary (obtain specimen); Complete Time: 14:18 cp Administered Medications: 13:15 Drug: NS 0.9% 1000 ml Route: IV; Rate: 1 bolus; Site: right antecubital; kg 14:00 Follow up: Response: No adverse reaction; IV Status: Completed infusion; IV Intake: kg 1000ml 13:15 Drug: morphine 4 mg Route: IVP; Site: left antecubital; kg 14:18 Follow up: Response: No adverse reaction; Pain is decreased kg 13:15 Drug: Decadron - Dexamethasone 10 mg Route: IVP; Site: right antecubital; kg 14:41 Follow up: Response: No adverse reaction; No change in condition kg 14:47 Drug: TORadol - (ketorolac) 15 mg Route: IVP; Site: right antecubital; kg 16:39 Follow up: Response: No adverse reaction kg 15:27 Drug: Demerol (meperidine) 25 mg Route: IVP; Site: right antecubital; kg 16:39 Follow up: Response: No adverse reaction kg Disposition: 11/28/20 16:31 Discharged to Home. Impression: Low back pain - L4-L5 disc herniation, Radiculopathy, lumbosacral region. - Condition is Stable. - Discharge Instructions: Back Pain, Adult, Lumbosacral Radiculopathy, Back Exercises. - Prescriptions for Cyclobenzaprine 10 mg Oral Tablet - take 1 tablet by ORAL route every 8 hours As needed; 20 tablet. Medrol (Nicholas) 4 mg Oral Tablets, Dose Pack - take 1 tablet by ORAL route as directed - follow package instructions; 1 packet. Tramadol 50 mg Oral Tablet - take 1 tablet by ORAL route every 8 hours as needed; 12 tablet. - Medication Reconciliation Form, Thank You Letter, Antibiotic Education, Prescription Opioid Use form. - Follow up: Johnathan Suárez MD; When: 2 - 3 days; Reason: Recheck today's complaints. - Problem is an ongoing problem. - Symptoms have improved. Signatures: Dispatcher [employer] EDMS Walter Squires PA PA cp Zarina Cho RN RN kg Corrections: (The following items were deleted from the chart) 16:32 16:31 11/28/2020 16:31 Discharged to Home. Impression: Low back pain. Condition is cp Stable. Prescriptions for Cyclobenzaprine 10 mg Oral Tablet - take 1 tablet by ORAL route every 8 hours As needed; 20 tablet, Medrol (Nicholas) 4 mg Oral Tablets, Dose Pack - take 1 tablet by ORAL route as directed - follow package instructions; 1 packet, Tramadol 50 mg Oral Tablet - take 1 tablet by ORAL route every 8 hours as needed; 12 tablet. and Forms are Medication Reconciliation Form, Thank You Letter, Antibiotic Education, Prescription Opioid Use. Follow up: Johnathan Suárez; When: 2 - 3 days; Reason: Recheck today's complaints. Problem is an ongoing problem. Symptoms have improved. cp 16:33 16:32 11/28/2020 16:31 Discharged to Home. Impression: Low back pain - L4-L5 disc cp herniation. Condition is Stable. Prescriptions for Cyclobenzaprine 10 mg Oral Tablet - take 1 tablet by ORAL route every 8 hours As needed; 20 tablet, Medrol (Nicholas) 4 mg Oral Tablets, Dose Pack - take 1 tablet by ORAL route as directed - follow package instructions; 1 packet, Tramadol 50 mg Oral Tablet - take 1 tablet by ORAL route every 8 hours as needed; 12 tablet. and Forms are Medication Reconciliation Form, Thank You Letter, Antibiotic Education, Prescription Opioid Use. Follow up: Johnathan Suárez; When: 2 - 3 days; Reason: Recheck today's complaints. Problem is an ongoing problem. Symptoms have improved. cp 16:54 16:33 11/28/2020 16:31 Discharged to Home. Impression: Low back pain - L4-L5 disc kg herniation; Radiculopathy, lumbosacral region. Condition is Stable. Discharge Instructions: Back Pain, Adult, Back Exercises, Lumbosacral Radiculopathy. Prescriptions for Cyclobenzaprine 10 mg Oral Tablet - take 1 tablet by ORAL route every 8 hours As needed; 20 tablet, Medrol (Nicholas) 4 mg Oral Tablets, Dose Pack - take 1 tablet by ORAL route as directed - follow package instructions; 1 packet, Tramadol 50 mg Oral Tablet - take 1 tablet by ORAL route every 8 hours as needed; 12 tablet. and Forms are Medication Reconciliation Form, Thank You Letter, Antibiotic Education, Prescription Opioid Use. Follow up: Johnathan Suárez; When: 2 - 3 days; Reason: Recheck today's complaints. Problem is an ongoing problem. Symptoms have improved. cp
--- NOTE | 2020-11-28 16:32 | ER ---
Nurse's Notes [facility] Name: Jeffrey Anna Age: 25 yrs Sex: Male : 1995 Arrival Date: 11/28/2020 Time: 13:20 Bed 26 Private MD: Diagnosis: Low back pain-L4-L5 disc herniation;Radiculopathy, lumbosacral region Presentation: 11/28 13:20 Chief complaint: Patient states: Pt stated, " I have chronic back pain and I was kg stretching and heard pop then had sudden pain in my back that goes from left lower back down the left buttock to knee and numbness in the left leg with shooting shocking pain that goes from left buttock to left knee. Coronavirus screen: Client denies travel out of the [place] in the last 14 days. At this time, unable to obtain information related to travel outside the [place] At this time, the client does not indicate any symptoms associated with coronavirus-19. Ebola Screen: Patient negative for fever greater than or equal to 101.5 degrees Fahrenheit, and additional compatible Ebola Virus Disease symptoms Patient denies exposure to infectious person. Patient denies travel to an Ebola-affected area in the 21 days before illness onset. Initial Sepsis Screen: Does the patient meet any 2 criteria? No. Patient's initial sepsis screen is negative. Does the patient have a suspected source of infection? No. Patient's initial sepsis screen is negative. Risk Assessment: Do you want to hurt yourself or someone else? Patient reports no desire to harm self or others. Onset of symptoms was November 28, 2020 at 12:00. 13:20 Method Of Arrival: EMS: [facility] kg 13:20 Acuity: PILAR 3 kg Historical: - Allergies: 13:50 Chronic Back Pain; kg - PMHx: 13:45 traumatic subdural hematoma; kg - Immunization history:: Adult Immunizations not up to date, Client reports having NOT received the Covid vaccine. - Social history:: Smoking status: Patient reports the use of cigarette tobacco products, denies chronic smoking, but will smoke occasionally. Screenin:55 Abuse screen: Denies threats or abuse. Denies injuries from another. Nutritional kg screening: No deficits noted. Tuberculosis screening: No symptoms or risk factors identified. Fall Risk No fall in past 12 months (0 pts). No secondary diagnosis (0 pts). IV access (20 points). Ambulatory Aid- None/Bed Rest/Nurse Assist (0 pts). Gait- Weak (10 pts.). Mental Status- Oriented to own ability (0 pts). Total Will Fall Scale indicates No Risk (0-24 pts). Assessment: 13:51 General: Appears uncomfortable, Behavior is calm, cooperative, appropriate for age, kg quiet. Pain: Complains of pain in Left lower back Pain radiates to Left buttock down left leg Pain currently is 10 out of 10 on a pain scale. at worst was 10 out of 10 on a pain scale. level that patient reports is acceptable is 5 out of 10 on a pain scale. Quality of pain is described as sharp, shooting, stabbing, numb, Pain began 2 hours ago. Is continuous, chronic. Neuro: Level of Consciousness is awake, alert, obeys commands, Oriented to person, place, time, situation, Appropriate for age Combination Building Inspector are equal bilaterally Weakness Reports numbness in left leg. Cardiovascular: No deficits noted. Respiratory: No deficits noted. GI: No deficits noted. : No deficits noted. EENT: No deficits noted. Derm: No deficits noted. Musculoskeletal: Reports numbness in left leg pain in Left lower back, Left buttock, left knee, left leg. 15:40 Reassessment: Patient states feeling better. Patient states symptoms have improved. kg Vital Signs: 13:20 BP 139 / 76; Pulse 56; Resp 20; Temp 97.8(O); Pulse Ox 93% on R/A; Weight 117.93 kg kg (R); Height 6 ft. 3 in. (190.50 cm) (R); Pain 10/10; 13:45 BP 144 / 87; Pulse 55; Resp 20; Pulse Ox 93% on R/A; kg 14:30 BP 133 / 72; Pulse 45; Resp 20; Pulse Ox 98% on R/A; kg 14:45 BP 129 / 83; Pulse 54; Resp 20; Pulse Ox 99% on R/A; kg 15:30 BP 151 / 80; Pulse 49; Resp 20; Pulse Ox 100% on R/A; kg 16:00 BP 132 / 71; Pulse 52; Resp 20; Pulse Ox 99% on R/A; kg 16:30 BP 125 / 72; Pulse 52; Resp 20; Pulse Ox 100% ; kg 13:20 Body Mass Index 32.50 (117.93 kg, 190.50 cm) kg ED Course: 13:20 Patient arrived in ED. kg 13:20 Zarina Cho, ANA is Primary Nurse. kg 13:22 Walter Squires PA is PHCP. cp 13:22 Jw Wall MD is Attending Physician. cp 13:25 Triage completed. kg 13:41 CT Lumbar Spine Wo Con In Process Unspecified. EDMS 13:55 Arm band placed on right wrist. kg 13:55 Maintain EMS IV. Dressing intact. Good blood return noted. Site clean \\T\\ dry. Gauge \\T\\ kg site: 18 R AC. 13:56 Patient has correct armband on for positive identification. Bed in low position. Call kg light in reach. Side rails up X2. 16:30 Johnathan Suárez MD is Referral Physician. cp 16:53 No provider procedures requiring assistance completed. IV discontinued, intact, kg bleeding controlled, No redness/swelling at site. Pressure dressing applied. Administered Medications: 13:15 Drug: NS 0.9% 1000 ml Route: IV; Rate: 1 bolus; Site: right antecubital; kg 14:00 Follow up: Response: No adverse reaction; IV Status: Completed infusion; IV Intake: kg 1000ml 13:15 Drug: morphine 4 mg Route: IVP; Site: left antecubital; kg 14:18 Follow up: Response: No adverse reaction; Pain is decreased kg 13:15 Drug: Decadron - Dexamethasone 10 mg Route: IVP; Site: right antecubital; kg 14:41 Follow up: Response: No adverse reaction; No change in condition kg 14:47 Drug: TORadol - (ketorolac) 15 mg Route: IVP; Site: right antecubital; kg 16:39 Follow up: Response: No adverse reaction kg 15:27 Drug: Demerol (meperidine) 25 mg Route: IVP; Site: right antecubital; kg 16:39 Follow up: Response: No adverse reaction kg Intake: 14:00 IV: 1000ml; Total: 1000ml. kg Outcome: 16:31 Discharge ordered by . cp 16:53 Discharged to home via wheelchair, with family. kg 16:53 Condition: stable 16:53 Discharge instructions given to patient, Instructed on discharge instructions, follow up and referral plans. Demonstrated understanding of instructions, follow-up care, medications, Prescriptions given X 3. 16:54 Patient left the ED. kg Signatures: Dispatcher [employer] EDMS Walter Squires PA PA cp Graham, Kristen, RN RN kg
[2020-11-28 17:17] VITALS: TEMP 97.8
[2020-11-28 17:26] VITALS: BP 125/72; O2SAT 100
== END 2020-11-28 16:54 | disposition home or self-care (01) ==
LOC: ER 13:12
DX: M51.17 Intervertebral disc disorders with radiculopathy, lumbosacral region (principal); F17.210 Nicotine dependence, cigarettes, uncomplicated
CPT/HCPCS: 36415; 72131; 80048; 81003; 81015; 85025; J1100; J2175; J7030

== ENCOUNTER 2022-04-04 16:07 | Emergency (ER) | payer SELFPAY ==
--- OUTSIDE RECORDS SUMMARY | 2022-04-04 16:11 | XMS REPORT | Continuity of Care Document ---
:1995 Author Organization [facility] t Address [address] [place] [address] Care Team Providers Name Role Phone CASANDRA MENDOZA Boogie Primary Care Physician Unavailable CLARENCE BARNETT Attending Clinician Unavailable Clarence Barnett MD Attending Clinician Raya Toledo Attending Clinician Doctor Unassigned, [place] Attending Clinician Unavailable Only, [facility] Test Attending Clinician Unavailable Fermin Canales MD Attending Clinician [phone] Nadia Amaya Attending Clinician NADIA SERNA Attending Clinician Unavailable Care, Ang Primary Attending Clinician Unavailable Marlin Dumont Attending Clinician CLARENCE BARNETT Admitting Clinician Unavailable Clarence Barnett MD Admitting Clinician Payers Payer Name Policy Type Policy Number Effective Date Expiration Date Sneha angelica [employer] [id number] 2021 00:00:00 [facility] BCBS BLUE [id number] 2015 ADVANTAGE HMO 00:00:00 Problems Condition Condition Condition Status Onset Resolution Last Treating Co mments Source Name Details Category Date Date Treatment Clinician Date Obesity Obesity Disease Active 2020-06 Univers (BMI (BMI 2-03 ity of 30-39.9) 30-39.9) 00:00: [facility] [place] Lumbar Lumbar Disease Active 2020-06 Univers radiculopa radiculopa 2-03 it y of thy thy 00:00: [facility] Allergies, Adverse Reactions, Alerts Allergy Allergy Status Severity Reaction(s) Onset Inactive Treating Comm ents Source Name Type Date Date Clinician No Known DA Active U [facility] [place] Allergie 00:00: d s [facility] No Known DA Active U NO REACTION [facility] 08-15 [place] Allergie 00:00: d s [facility] NO KNOWN Drug Active Univers ALLERGIE Class ity of S [facility] Social History Social Habit Start Date Stop Date Quantity Comments Source Exposure to Not sure [facility] SARS-CoV-2 (event) [facility] History of tobacco Cigarette Smoker University of use [facility] Alcohol intake 2021-05-20 2021-05-20 Ex-drinker University of 00:00:00 00:00:00 (finding) [facility] Cigarettes smoked 2021-03-28 2021-03-28 Univers ity of current (pack per 00:00:00 00:00:00 ) - Reported Branch Cigarette 2021-03-28 2021-03-28 University of pack-years 00:00:00 00:00:00 [facility] Tobacco use and 2021-03-28 2021-03-28 Current user Univers ity of exposure 00:00:00 00:00:00 [facility] Tobacco Comment 2021-03-28 2021-03-28 Smokes cigarettes Un iversity of 00:00:00 00:00:00 occasionally/ [place] Medic al vapes daily Branch Sex Assigned [birth year] Universit y of 00:00:00 00:00:00 [facility] Smoking Status Start Date Stop Date Source Current every day smoker 2021-03-28 00:00:00 Uni versity of [facility] Medications Ordered Filled Start Stop Current Ordering Indication Dosage Frequency Signature Comments Components Source Medication Medication Date Date Medication? Clinician (SIG) Name Name docusate 2020-06 Yes [id number] 240mg Take 1 U nivers calcium 240 2-03 capsule by it y of mg capsule 00:00: mouth once [place] 00 daily as Medical needed for Branch Constipati on (take daily when taking narcotics) . naproxen 2020-06 Yes [id number] 500mg Take 1 U nivers 500 mg 0-14 tablet by ity of tablet 00:00: mouth 2 [place] 00 (two) Medical times Branch daily with meals. buPROPion 2020-06 Yes [id number] 150mg Take 1 U nivers SR 0-14 tablet by ity of (WELLBUTRIN 00:00: mouth 2 [place] SR) 150 mg 00 (two) Medical SR tablet times Branch daily. methocarbam Yes [id number] 500mg Take 1 Univers oL 500 mg 5-27 tablet by ity o f tablet 00:00: mouth 4 [place] 00 (four) Medical times Branch daily as needed (muscle pain). Vital Signs Vital Name Observation Time Observation Value Comments Source Body height 2021-06-24 14:47:00 185.4 cm [facility] Body weight 2021-06-24 14:47:00 130.182 kg [facility] BMI 2021-06-24 14:47:00 37.87 kg/m2 [facility] Procedures This patient has no known procedures. Encounters Start End Encounter Admission Attending Care Care Encounter Source Date/Time Date/Time Type Type Clinicians Facility Department ID 2021-04-30 Outpatient CLARENCE ENRIQUEZ [place] SNS [id number] [facility] 08:24:49 [facility] 2020-09-12 Inpatient [facility] [id number] [facility] 13:26:00 57 [facility] 2021-06-24 2021-06-24 Outpatient CLARENCE ENRIQUEZ [facility] [place] [id number] Univers 08:30:00 09:47:26 [facility] 2021-06-24 2021-06-24 Office Clarence Barnett [facility] 1.2.840.114 [id number] Univers 08:30:00 09:47:26 Visit HEALTH [id number] it [id number] [id number] [facility] [address] [place] OFFICE BUILDING 2021-05-21 2021-05-21 Telephone Sonja RUST [id number] Univers 00:00:00 00:00:00 Raya HEALTH [id number] it y of [place] 4.2.7.2.686 [place] as RUSTY?BLEA [id number] [place] dicjane MCCONNELL [address] [place] MEDICAL OFFICE BUILDING 2021-05-20 2021-05-20 Orders Doctor DA [id number] Univers 00:00:00 00:00:00 Only Unassigned, [place] [id number] ity of [place] HOSPITAL 4.2.7.2.686 [place] as [phone] [address] 2021-05-17 2021-05-[address] [facility] [id number] Univers 11:00:00 17:10:00 Encounter HEALTH [id number] it[place] [phone] [facility] [address] [place] ([facility]) 2021-05-17 2021-05-17 Outpatient R ERICKA [facility] SNS [id number] Univers 11:00:00 17:10:00 ity of [facility] 2021-05-17 2021-05-[address] [facility] 1.2.840.114 [id number] Univers 13:29:00 15:57:00 HEALTH [id number] it [place] [id number] [facility] [address] [place] ([facility]) 2021-05-17 2021-05-17 Orders Doctor DA 1.2.840.114 [id number] Univers 00:00:00 00:00:00 Only Unassigned, [place] [id number] ity of [place] HOSPITAL 4.2.7.2.686 [place] as [phone] [address] 2021-05-13 2021-05-13 Outpatient R [facility] [id number] Univers 17:00:00 17:00:00 ity of [facility] 2021-05-13 2021-05-13 Laboratory Only, [facility] Main Test RUST 1.2 .840.114 [id number] Univers 14:45:05 15:00:05 Only ErickaMelindahi YANET 350.1.13.10 it[place] [id number] [address] ([facility]) 2021-05-13 2021-05-13 Outpatient [facility] [id number] Univers 15:00:00 15:00:00 ity of [facility] 2021-05-07 2021-05-07 Case Parker, RUST 1.2.840.114 [id number] Univers 00:00:00 00:00:00 Management Fermin [facility] [id number] it[place] [id number] [address] ([facility]) 2021-04-29 2021-04-29 Outpatient R CLARENCE BARNETT [facility] [id number] Univers 15:00:00 17:26:03 ity of [facility] 2021-04-29 2021-04-29 Office Clarence Barnett [place] 1.2.840.114 [id number] Univers 14:33:42 17:26:03 Visit HEALTH 350.1.13.10 it [place] [id number] [address] OFFICE BUILDING 2021-04-15 2021-04-15 Orders Doctor DA 1.2.840.114 [id number] Univers 00:00:00 00:00:00 Only Unassigned, [place] 350.1.13.10 ity of [place] HOSPITAL 4.2.7.2.686 [place] as [id number] [address] 2021-04-05 2021-04-05 Hospital Nadia Serna R[facility] 1.2.840.114 [id number] Univers 13:52:47 23:59:00 Encounter [place] 350.1.13.10 ity of [place] Post [id number] [facility] 804 Branch 2021-04-05 2021-04-05 Hospital Nadia Serna [place] 1.2.840.114 [id number] Univers 13:45:00 13:51:00 Encounter [place] 350.1.13.10 ity of [place] 4.2.7.2.686 [facility] [id number] [facility] 807 Branch 2021-04-05 2021-04-05 Outpatient R [facility] [id number] Univers 00:00:00 00:00:00 ity of [facility] 2021-03-28 2021-03-28 Office Care, Ang Primary [place] 1.2.840 .114 [id number] Univers 09:01:26 10:09:43 Visit Nadia Serna [facility] 350.1.13.10 ity of [facility] 4.2.7.2.686 [facility] UNIT [phone] [facility] 362 Branch 2021-03-28 2021-03-28 [id number] Univers 09:00:00 09:00:00 ity of [facility] 2021-03-28 2021-03-28 Orders Doctor DA 1.2.840.114 [id number] Univers 00:00:00 00:00:00 Only Unassigned, [place] 350.1.13.10 ity of [place] [facility] 4.2.7.2.686 [facility] [id number] [facility] 009 Branch 2020-11-08 2020-11-08 Emergency [facility] [id number] 15:08:00 16:50:00 Marlin R [place] 350.1.13.10 [place] 4.2.7.2.686 Post [id number] [id number] 2020-11-08 2020-11-08 Emergency [facility] [id number] Univers 15:08:00 16:50:00 Marlin R [place] 350.1.13.10 i ty of [place] 4.2.7.2.686 [facility] [phone] [facility] 084 Branch 2020-11-08 2020-11-08 Emergency X RUST ERT [id number] Univers 15:01:00 15:01:00 ity [facility] Results Test Description Test Time Test Comments [...] [place]) ng/mL UA RFLX MICR CULT IF [id number] 03:02:00 Test Item Value Reference Range Interpretation [...] Description: CLEAN CATCHUA RFLX MICR CULT IF [id number] 02:37:00 Test Item Value Reference Range Interpretation [...] culture: Flank PainSpecimen Description: CLEAN CATCHCBC W/AUTO [id number] 16:17:00 Test Item Value Reference Range Interpretation [...] X10 3uL 0.00-0.01 N NRBC#) COMPREHENSIVE METABOLIC [id number] 15:56:00 Test Item Value Reference Range Interpretation [...] 50.0-136.0 N code = ALKP) COMPREHENSIVE METABOLIC [id number] 15:49:00 Test Item Value Reference Range Interpretation [...] code = ALKP) - CT L-SPINE W/O [id number] 14:16:00 [facility] 1995 Sex: M FAX: Tohr Chen NP [phone] Post: St: REG Name: KENTON STEWART [facility] : 1995 Age/S: 24/M [address] [facility] [employer] [facility] Unit: [id number] Loc: E.ERS2 [place], [place]: [place] [address] Acct:[id number] Dis Date: Status: REG ER PHONE #: [phone] Exam Date: 09/12/2020 1402 FAX #: [phone] Reason: low back pain EXAMS: CPT CODE: [id number] CT L-SPINE W/O CONTRAST 21956 Dictation location: H37. CT LUMBAR SPINE WITHOUT CONTRAST; SAGITTAL AND CORONAL REFORMATTED VIEWS. HISTORY: low back pain COMPARISON :None. TECHNIQUE: Axial CT images of the lumbar spine were obtained with coronal and sagittal reformatted views. Automated exposure control, iterative reconstruction technique, and/or a djustment of mA and/or kV according to patient's size was utilized for radiation dose reduction. IVCONTRAST: None. FINDINGS: 5 nonrib-bearing lumbar vertebral bodies are noted. The lumbar vertebral alignment is straightened. No lumbar spine fracture or subluxation. No prevertebral soft tissue swelling. At L2-L3, posterior bulging annulus causes up to mild spinal canal stenosis without significant neuroforaminal narrowing. At L4-L5, posterior bulging annulus causes up to moderate spinal canal stenosis and neuroforaminal narrowing. There could be a potential central disc herniation at this level. At L5-S1, minimal posterior bulging annulus narrows the right lateral recess with no significant spinal canal stenosis and moderate to severe right neuroforaminal narrowing. IMPRESSION: Lower lumbar spondylosis greatest at L4-L5 with moderate spinal canal stenosis. Potential central disc protrusion at this level. This may be further characterized with an outpatient MRI lumbar spine as needed. Moderate to severe right neuroforaminal narrowing at L5-S1. PAGE 1 Signed Report (CONTINUED) FAX: Thor Chen NP [phone] Post: St: REG Name: STEWARTKENTONANGELITA CONN [facility] : 1995 Age/S: 24/M [address] [facility] [employer] [facility] Unit: [id number] Loc: E.[address] [place]: [place] [address] Acct: [id number] Dis Date: Status: REG ER PHONE #: [phone] Exam Date: 09/12/2020 1402 FAX #: [phone] Reason: low back pain EXAMS: CPT CODE: [id number] CT L-SPINE W/O CONTRAST 32513 (Continued) ElectronicallySigned by Giselle Ramirez on 09/12/2020 at 1416 Reported and signed by: Carola Ramirez M.D. CC: Thor Chen NP Technologist: Paulette Duran Dt/Tm: 09/12/2020 (1416) t.SP17 Orig Print D/T: S: 09/12/2020 (1419 PAGE 2 Signed Report
[2022-04-04] MEDS ORDERED: IBUPROFEN 400 MG TAB ONE (17:03)
--- NOTE | 2022-04-04 17:53 | RAD REPORT ---
EXAM DESCRIPTION: RAD - Lumbar Spine 3 Views - 04/04/2022 5:41 pm CLINICAL HISTORY: PAIN COMPARISON: No comparisons FINDINGS: A three-view lumbar spine examination was performed. Lumbar bodies are normal in height. There is a very slight retrolisthesis of L4 on L5. Mild left late ral tilt of the upper lumbar spine may be part of a thoracolumbar scoliosis. Thoracic spine is outsid e of the field of view of this study. No fracture or acute bony process seen. Small size to the L4 sp inous process can be seen as normal variant. No convincing evidence for a bone destructive process. N o disc space narrowing. No other significant findings. No pars defects identified. IMPRESSION: No acute lumbar spine finding identifiable. Concerns for disc herniation, central canal abnormality or occult bone process could be identified wi follow-up outpatient MRI imaging.
--- NOTE | 2022-04-04 18:08 | EDPHYS ---
Physician Documentation [facility] Name: Jeffrey Anna Age: 26 yrs Sex: Male : 1995 Arrival Date: 04/04/2022 Time: 16:12 Bed 12 Private MD: ED Physician Walter Sanchez HPI: 04/04 18:01 This 26 yrs old Male presents to ER via Ambulatory with complaints of Back richard Pain. 18:01 The patient presents with pain that is acute, with no known mechanism of injury. The richard symptoms are located in the low back, lumbar area. Onset: The symptoms/episode began/occurred 1 day(s) ago. The pain does not radiate. Associated signs and symptoms: The patient has no apparent associated signs or symptoms, Pertinent positives: none. The problem was sustained from unknown cause. Severity of symptoms: At their worst the symptoms were moderate, in the emergency department the symptoms are unchanged. The patient has experienced similar episodes in the past, several times. 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 - Social history:: Smoking status: Patient denies any tobacco usage or history of. ROS: 18:04 Constitutional: Negative for fever, chills, and weight loss, Eyes: Negative for injury, richard pain, redness, and discharge, ENT: Negative for injury, pain, and discharge, Neck: Negative for injury, pain, and swelling, Cardiovascular: Negative for chest pain, palpitations, and edema, Respiratory: Negative for shortness of breath, cough, wheezing, and pleuritic chest pain, Abdomen/GI: Negative for abdominal pain, nausea, vomiting, diarrhea, and constipation, : Negative for injury, bleeding, discharge, and swelling, MS/Extremity: Negative for injury and deformity, Skin: Negative for injury, rash, and discoloration, Neuro: Negative for headache, weakness, numbness, tingling, and seizure, Psych: Negative for depression, anxiety, suicide ideation, homicidal ideation, and hallucinations, Allergy/Immunology: Negative for hives, rash, and allergies, Endocrine: Negative for neck swelling, polydipsia, polyuria, polyphagia, and marked weight changes, Hematologic/Lymphatic: Negative for swollen nodes, abnormal bleeding, and unusual bruising. 18:04 Back: Positive for decreased range of motion, pain at rest, pain with movement, radiated pain, of the left low back and right low back. Exam: 18:04 Constitutional: This is a well developed, well nourished patient who is awake, alert, richard and in no acute distress. Head/Face: Normocephalic, atraumatic. Eyes: Pupils equal round and reactive to light, extra-ocular motions intact. Lids and lashes normal. Conjunctiva and sclera are non-icteric and not injected. Cornea within normal limits. Periorbital areas with no swelling, redness, or edema. ENT: Nares patent. No nasal discharge, no septal abnormalities noted. Tympanic membranes are normal and external auditory canals are clear. Oropharynx with no redness, swelling, or masses, exudates, or evidence of obstruction, uvula midline. Mucous membranes moist. Neck: Trachea midline, no thyromegaly or masses palpated, and no cervical lymphadenopathy. Supple, full range of motion without nuchal rigidity, or vertebral point tenderness. No Meningismus. Chest/axilla: Normal chest wall appearance and motion. Nontender with no deformity. No lesions are appreciated. Cardiovascular: Regular rate and rhythm with a normal S1 and S2. No gallops, murmurs, or rubs. Normal PMI, no JVD. No pulse deficits. Respiratory: Lungs have equal breath sounds bilaterally, clear to auscultation and percussion. No rales, rhonchi or wheezes noted. No increased work of breathing, no retractions or nasal flaring. Abdomen/GI: Soft, non-tender, with normal bowel sounds. No distension or tympany. No guarding or rebound. No evidence of tenderness throughout. Male : Normal genitalia with no discharge or lesions. Skin: Warm, dry with normal turgor. Normal color with no rashes, no lesions, and no evidence of cellulitis. MS/ Extremity: Pulses equal, no cyanosis. Neurovascular intact. Full, normal range of motion. Neuro: Awake and alert, GCS 15, oriented to person, place, time, and situation. Cranial nerves II-XII grossly intact. Motor strength 5/5 in all extremities. Sensory grossly intact. Cerebellar exam normal. Normal gait. Psych: Awake, alert, with orientation to person, place and time. Behavior, mood, and affect are within normal limits. 18:04 Back: pain, that is moderate, of the lumbar area, left low back and right low back, ROM is painful, with flexion, with extension, normal spinal alignment noted, CVA tenderness, is absent, muscle spasm, is appreciated in the left low back, left mid back, right mid back and right low back. Vital Signs: 16:23 BP 158 / 90; Pulse 80; Resp 18; Temp 98.1; Pulse Ox 100% on R/A; Weight 117.93 kg; hb Height 6 ft. 2 in. (187.96 cm); Pain 10/10; 18:38 BP 148 / 88; Pulse 76; Resp 16; Pulse Ox 99% ; Pain 8/10; hb 16:23 Body Mass Index 33.38 (117.93 kg, 187.96 cm) hb MDM: 16:29 Patient medically screened. [facility] 18:05 Differential diagnosis: chronic back pain, Fatigue Ligament Injury Obesity ruptured richard disc, spinal injury, sprain, vertebral fracture. Data reviewed: vital signs, nurses notes, radiologic studies, plain films. Data interpreted: property assessment monitor: rate is 80 beats/min, rhythm is regular, Pulse oximetry: on room air is 100 %. Test interpretation: by ED physician or midlevel provider: plain radiologic studies. Counseling: I had a detailed discussion with the patient and/or guardian regarding: the historical points, exam findings, and any diagnostic results supporting the discharge/admit diagnosis, radiology results, the need for outpatient follow up, for definitive care, a family practitioner, a neurosurgeon. 04/04 16:30 Order name: Lumbar Spine (3 Views) XRAY; Complete Time: 17:57 richard Administered Medications: 17:05 Drug: Motrin (ibuprofen) 800 mg Route: PO; hb 18:00 Follow up: Response: No adverse reaction hb 18:30 Drug: Dilaudid (HYDROmorphone) 2 mg Route: IM; Site: right deltoid; hb 18:40 Follow up: Response: Medication administered at discharge. hb 18:30 Drug: Phenergan (promethazine) 25 mg Route: IM; Site: left deltoid; hb 18:40 Follow up: Response: Medication administered at discharge. hb 18:30 Drug: Decadron (dexamethasone) 10 mg Route: IM; Site: left deltoid; hb 18:40 Follow up: Response: Medication administered at discharge. hb 18:30 Drug: Valium (diazepam) 5 mg Route: PO; hb 18:40 Follow up: Response: Medication administered at discharge. hb Disposition Summary: 04/04/22 18:07 Discharge Ordered Location: Home richard Problem: new richard Symptoms: have improved richard Condition: Stable richard Diagnosis - Low back pain richard - Sciatica richard Followup: richard - With: Private Physician - When: 2 - 3 days - Reason: Recheck today's complaints, Continuance of care, Re-evaluation by your physician Followup: richard - With: Kyaw Young MD - When: 2 - 3 days - Reason: Recheck today's complaints, Continuance of care, Re-evaluation by your physician Discharge Instructions: - Discharge Summary Sheet richard - Acute Back Pain, Adult richard - Chronic Back Pain richard - Musculoskeletal Pain richard - Sciatica richard - Sciatica, [id number] Forms: - Medication Reconciliation Form richard - Thank You Letter richard - Antibiotic Education richard - Prescription Opioid Use [facility] - Work release form kb3 Prescriptions: - Diclofenac Sodium 75 mg Oral Tablet Sustained Release - take 1 tablet by ORAL route 2 times per day; 30 tablet; Refills: 0, Product [facility] Selection Permitted - Valium 5 mg Oral Tablet - take 1 tablet by ORAL route every 8 hours As needed; 20 tablet; Refills: 0, [facility] Product Selection Permitted - Tylenol-Codeine #3 300 mg-30 mg Oral - take 2 tablet by ORAL route every 6 hours; 26 tablet; Refills: 0, Product [facility] Selection Permitted - dexamethasone 2 mg Oral tablet - take 1 tablet by ORAL route 3 times per day; 12 tablet; Refills: 0, Product richard Selection Permitted Signatures: Dispatcher [employer] Walter Palomino MD MD cha Baxter, Heather, RN RN hb Corrections: (The following items were deleted from the chart) 16:25 16:24 Allergies: Chronic Back Pain; hb hb
--- NOTE | 2022-04-04 18:08 | ER ---
Nurse's Notes [facility] Name: Jeffrey Anna Age: 26 yrs Sex: Male : 1995 Arrival Date: 04/04/2022 Time: 16:12 Bed 12 Private MD: Diagnosis: Low back pain;Sciatica Presentation: 04/04 16:23 Chief complaint: Severe low back pain that started while sitting in hard back chair in hb class yesterday. Coronavirus screen: At this time, the client does not indicate any symptoms associated with coronavirus-19. Ebola Screen: No symptoms or risks identified at this time. Initial Sepsis Screen: Does the patient meet any 2 criteria? No. Patient's initial sepsis screen is negative. Does the patient have a suspected source of infection? No. Patient's initial sepsis screen is negative. Risk Assessment: Do you want to hurt yourself or someone else? Patient reports no desire to harm self or others. Onset of symptoms was April 03, 2022. 16:23 Method Of Arrival: Ambulatory 16:23 Acuity: PILAR 3 hb Triage Assessment: 16:24 General: Appears in no apparent distress. uncomfortable, Behavior is calm, cooperative. hb Pain: Pain currently is 10 out of 10 on a pain scale. EENT: No signs and/or symptoms were reported regarding the EENT system. Neuro: Level of Consciousness is awake, alert, obeys commands, Oriented to person, place, time, situation. Cardiovascular: Patient's skin is warm and dry. Respiratory: Respiratory effort is even, unlabored, Respiratory pattern is regular, symmetrical. GI: No signs and/or symptoms were reported involving the gastrointestinal system. : No signs and/or symptoms were reported regarding the genitourinary system. Derm: Skin is pink, warm \T\ dry. Musculoskeletal: Reports low back pain 03/24. 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 - Social history:: Smoking status: Patient denies any tobacco usage or history of. Screenin:25 Abuse screen: Denies threats or abuse. Denies injuries from another. Nutritional hb screening: No deficits noted. Tuberculosis screening: No symptoms or risk factors identified. Fall Risk None identified. Assessment: 16:25 General: SEE TRIAGE ASSESSMENT. hb 17:55 Reassessment: Patient appears in no apparent distress at this time. Patient and/or hb family updated on plan of care and expected duration. Pain level reassessed. Patient is alert, oriented x 3, equal unlabored respirations, skin warm/dry/pink. 18:38 Reassessment: Patient appears in no apparent distress at this time. Patient and/or hb family updated on plan of care and expected duration. Pain level reassessed. Patient is alert, oriented x 3, equal unlabored respirations, skin warm/dry/pink. Vital Signs: 16:23 BP 158 / 90; Pulse 80; Resp 18; Temp 98.1; Pulse Ox 100% on R/A; Weight 117.93 kg; hb Height 6 ft. 2 in. (187.96 cm); Pain 10/10; 18:38 BP 148 / 88; Pulse 76; Resp 16; Pulse Ox 99% ; Pain 8/10; hb 16:23 Body Mass Index 33.38 (117.93 kg, 187.96 cm) hb ED Course: 16:12 Patient arrived in ED. am2 16:24 Triage completed. hb 16:25 Arm band placed on. hb 16:25 Patient has correct armband on for positive identification. hb 16:29 Walter Sanchez MD is Attending Physician. richard 16:40 Carla Rouse, ANA is Primary Nurse. hb 17:43 Lumbar Spine (3 Views) XRAY In Process Unspecified. EDMS 18:06 Kyaw Young MD is Referral Physician. richard 18:38 No provider procedures requiring assistance completed. Patient did not have IV access hb during this emergency room visit. Administered Medications: 17:05 Drug: Motrin (ibuprofen) 800 mg Route: PO; hb 18:00 Follow up: Response: No adverse reaction hb 18:30 Drug: Dilaudid (HYDROmorphone) 2 mg Route: IM; Site: right deltoid; hb 18:40 Follow up: Response: Medication administered at discharge. hb 18:30 Drug: Phenergan (promethazine) 25 mg Route: IM; Site: left deltoid; hb 18:40 Follow up: Response: Medication administered at discharge. hb 18:30 Drug: Decadron (dexamethasone) 10 mg Route: IM; Site: left deltoid; hb 18:40 Follow up: Response: Medication administered at discharge. hb 18:30 Drug: Valium (diazepam) 5 mg Route: PO; hb 18:40 Follow up: Response: Medication administered at discharge. hb Medication: 16:25 VIS not applicable for this client. hb Outcome: 18:07 Discharge ordered by . richard 18:38 Discharged to home ambulatory. hb 18:38 Condition: stable 18:38 Discharge instructions given to patient, Instructed on discharge instructions, follow up and referral plans. medication usage, Demonstrated understanding of instructions, follow-up care, medications, Prescriptions given X 4. 18:39 Patient left the ED. hb Signatures: Dispatcher [employer] EDMS Walter Sanchez MD MD cha Baxter, Heather, RN RN Amber Zuniga am2 Corrections: (The following items were deleted from the chart) 16:25 16:24 Allergies: Chronic Back Pain; hb
[2022-04-04] MEDS ORDERED: dexAMETHasone 10 MG/ML VIAL ONE (18:20)
[2022-04-04] MEDS ORDERED: HYDROMORPHONE HCL 1 MG/ML INJ ONE (18:20)
[2022-04-04] MEDS ORDERED: PROMETHAZINE INJ 25 MG/ML AMP ONE ×2 (18:20)
[2022-04-04] MEDS ORDERED: DIAZEPAM 5 MG TABLET ONE (18:21)
[2022-04-04 18:45] VITALS: TEMP 98.1
[2022-04-04 18:47] VITALS: BP 148/88; O2SAT 99
== END 2022-04-04 18:39 | disposition home or self-care (01) ==
LOC: ER 16:07
DX: M54.32 Sciatica, left side (principal); M54.31 Sciatica, right side
CPT/HCPCS: 72100; 96372; 99283; J1100; J1170; J2550

== ENCOUNTER → 2023-07-15 | Emergency (ER) | payer SELFPAY ==
[~2023-07-15] MED LIST: GABAPENTIN 300 MG CAP ONE; dexAMETHasone 10 MG/ML VIAL ONE
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
[2023-07-15 07:40] LABS: Absolute Lymphocytes (CBC) 2.8 K/uL (0.7-4.9); Hematocrit 38.5 % (39.6-49.0); Lymphocytes % 32.9 % (15.3-44.8); MCV 85.8 fL (80-100); MPV 7.2 fL (7.6-11.3); Platelets 437 thou/uL (152-406); RBC Red Blood Cell Count 4.49 M/uL (4.33-5.43)
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
[2023-07-15 07:50] LABS: Potassium 4.2 mEq/L (3.5-5.1)
--- NOTE | 2023-07-15 09:04 | RAD REPORT ---
EXAM DESCRIPTION: US - UPPER EXTREMITY VENOUS BILAT - 07/15/2023 8:38 am CLINICAL HISTORY: Finger swelling COMPARISON: None. TECHNIQUE: Real-time sonographic evaluation of the bilateral upper extremity venous system was perfo rmed. FINDINGS: Normal compressibility, flow augmentation, phasic flow and spontaneous flow is identified in both upper extremity venous systems. No intraluminal filling defects seen. IMPRESSION: No venous thrombosis identified in either upper extremity.
--- NOTE | 2023-07-15 09:21 | EDPHYS ---
Physician Documentation [facility] Name: Jeffrey Anna Age: 27 yrs Sex: Male : 1995 Arrival Date: 07/15/2023 Time: 06:50 Bed 8 Private MD: ED Physician Kamar Radford HPI: 07/15 08:06 This 27 yrs old Male presents to ER via Ambulatory with complaints of rn NUMBNESS/SWELLING IN UPPER EXT. 08:06 Patient reports numbness and tingling bilateral upper extremities from the elbow down. rn No trauma. Works a lot with his hands. No weakness. Subjective swelling per patient. No headache. No neck pain. Does have chronic back problems with herniated disks. No issues with his legs.. Onset: The symptoms/episode began/occurred 1 week(s) ago. Severity of symptoms: At their worst the symptoms were moderate in the emergency department the symptoms are unchanged. The patient has not experienced similar symptoms in the past. The patient has not recently seen a physician. 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 - Social history:: Smoking status: Patient denies any tobacco usage or history of. Patient/guardian denies using alcohol. - Family history:: not pertinent. - Hospitalizations: : No recent hospitalization is reported. ROS: 08:06 Constitutional: Negative for fever, chills, and weight loss, Neck: Negative for injury, rn pain, and swelling, Cardiovascular: Negative for chest pain, palpitations, and edema, Respiratory: Negative for shortness of breath, cough, wheezing, and pleuritic chest pain, Abdomen/GI: Negative for abdominal pain, nausea, vomiting, diarrhea, and constipation, Back: Negative for injury and pain, MS/Extremity: Positive for tingling to bilateral arms Skin: Negative for injury, rash, and discoloration, Neuro: Positive for numbness and tingling to both arms Exam: 08:06 Constitutional: This is a well developed, well nourished patient who is awake, alert, rn and in no acute distress. Head/Face: Normocephalic, atraumatic. Neck: No masses. No meningismus. Skin: Warm, dry with normal turgor. Normal color with no rashes, no lesions, and no evidence of cellulitis. MS/ Extremity: Pulses equal, no cyanosis. Neurovascular intact. Full, normal range of motion. Equal circumference. Neuro: Awake and alert, GCS 15, oriented to person, place, time, and situation. Cranial nerves II-XII grossly intact. Motor strength 5/5 in all extremities. Decreased sensation bilateral arms from forearms to hands.. Cerebellar exam normal. Vital Signs: 07:17 BP 144 / 90; Pulse 62; Resp 18; Temp 97.9(TE); Pulse Ox 99% on R/A; Weight 115.67 kg; ld1 Height 6 ft. 2 in. ; Pain 7/10; 08:45 BP 150 / 88; Pulse 61; Resp 18; Pulse Ox 100% on R/A; ld1 07:17 Body Mass Index 32.74 (115.67 kg, 187.96 cm) ld1 07:17 Pain Scale: Adult ld1 MDM: 07:02 Patient medically screened. rn 09:19 Differential Diagnosis Radiculopathy, peripheral neuropathy, carpal tunnel syndrome, rn electrolyte disorder. Data reviewed: vital signs, nurses notes, lab test result(s), radiologic studies, CT scan, ultrasound, and as a result, I will discharge patient. Counseling: I had a detailed discussion with the patient and/or guardian regarding the historical points, exam findings, and any diagnostic results supporting the discharge/admit diagnosis, lab results, radiology results, the need for outpatient follow up, to return to the emergency department if symptoms worsen or persist or if there are any questions or concerns that arise at home. Special discussion: I discussed with the patient/guardian in detail that at this point there is no indication for admission to the hospital. It is understood, however, that if the symptoms persist or worsen the patient needs to return immediately for re-evaluation. ED course: No acute findings on CT head or C-spine. Ultrasound negative for DVT bilaterally. No elevation of WBC. 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 Patient has chronic lower back problems with radiculopathy. Also had recent manipulation by chiropractor of neck. Will discharge home with return precautions.. 07/15 07:17 Order name: CBC with Diff; Complete Time: 07:57 rn 07/15 07:17 Order name: Basic Metabolic Panel; Complete Time: 07:57 rn 07/15 07:17 Order name: Magnesium; Complete Time: 07:57 rn 07/15 07:17 Order name: CT Head C Spine; Complete Time: 07:57 rn 07/15 07:23 Order name: UPPER EXTREMITY VENOUS BILAT; Complete Time: 09:11 EDMS 07/15 07:17 Order name: IV Start; Complete Time: 07:26 rn Administered Medications: 08:39 Drug: Decadron - Dexamethasone IVP 10 mg IVP once Route: IVP; Site: right forearm; ld1 08:39 Drug: Gabapentin PO 300 mg PO once Route: PO; ld1 Disposition Summary: 07/15/23 09:21 Discharge Ordered Notes: Location: Home rn Problem: an ongoing problem rn Symptoms: have improved rn Condition: Stable rn Diagnosis - Polyneuropathy, unspecified rn Followup: rn - With: Private Physician - When: As needed - Reason: Recheck today's complaints, Re-evaluation by your physician Discharge Instructions: - Discharge Summary Sheet rn - Peripheral Neuropathy rn Forms: - Medication Reconciliation Form rn - Thank You Letter rn - Antibiotic recovery rn - Prescription Opioid Use rn - Patient Portal Instructions rn - Leadership Thank You Letter rn - Work release form ld1 Prescriptions: - gabapentin 300 mg Oral capsule - take 1 capsule ORAL route every 12 hours As needed; 14 capsule; Refills: 0, rn Product Selection Permitted - Medrol (Nicholas) 4 mg Oral Tablets, Dose Pack - take 1 tablet ORAL route as directed - follow package instructions; 1 packet; rn Refills: 0, Product Selection Permitted Signatures: Dispatcher [employer] Kamar Obregon MD MD rn Lewis, Lynsay, RN RN ll1 Luisana Nur RN RN ld1 Corrections: (The following items were deleted from the chart) 07:23 07:17 Extrem Venous W Compression [email or web address] ordered. EDNH EDMS
--- NOTE | 2023-07-15 09:21 | ER ---
Nurse's Notes [facility] Name: Jeffrey Anna Age: 27 yrs Sex: Male : 1995 Arrival Date: 07/15/2023 Time: 06:50 Bed 8 Private MD: Diagnosis: Polyneuropathy, unspecified Presentation: 07/15 07:14 Coronavirus screen: At this time, the client does not indicate any symptoms associated ld1 with coronavirus-19. Ebola Screen: No symptoms or risks identified at this time. Risk Assessment: Do you want to hurt yourself or someone else? Patient reports no desire to harm self or others. Onset of symptoms was July 15, 2023. 07:14 Acuity: PILAR 4 ld1 07:14 Method Of Arrival: Ambulatory ld1 07:17 Chief complaint: Patient states: AMBERLY numbness to hands X 1-2 weeks. Denies injury. ld1 Initial Sepsis Screen: Does the patient meet any 2 criteria? No. Patient's initial sepsis screen is negative. Does the patient have a suspected source of infection? No. Patient's initial sepsis screen is negative. Triage Assessment: 07:17 General: Appears in no apparent distress. comfortable, Behavior is cooperative, ld1 anxious. Pain: Complains of pain in right hand and left hand Pain does not radiate. Pain currently is 7 out of 10 on a pain scale. Quality of pain is described as throbbing, numb. EENT: No signs and/or symptoms were reported regarding the EENT system. Neuro: Level of Consciousness is awake, alert, obeys commands, Oriented to person, place, time, situation, Reports numbness in right hand and left hand. Cardiovascular: Capillary refill < 3 seconds Patient's skin is warm and dry. Rhythm is sinus rhythm. Respiratory: Airway is patent Respiratory effort is even, unlabored. GI: Abdomen is flat, non-distended. : No signs and/or symptoms were reported regarding the genitourinary system. Derm: No signs and/or symptoms reported regarding the dermatologic system. Musculoskeletal: No signs and/or symptoms reported regarding the musculoskeletal system. 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 - Social history:: Smoking status: Patient denies any tobacco usage or history of. Patient/guardian denies using alcohol. - Family history:: not pertinent. - Hospitalizations: : No recent hospitalization is reported. Screenin:19 [facility] ED Fall Risk Assessment (Adult) History of falling in the last 3 months, ld1 including since admission No falls in past 3 months (0 pts). Abuse screen: Denies threats or abuse. Denies injuries from another. Nutritional screening: No deficits noted. Tuberculosis screening: No symptoms or risk factors identified. Assessment: 07:19 Reassessment: See triage assessment. ld1 Vital Signs: 07:17 BP 144 / 90; Pulse 62; Resp 18; Temp 97.9(TE); Pulse Ox 99% on R/A; Weight 115.67 kg; ld1 Height 6 ft. 2 in. ; Pain 7/10; 08:45 BP 150 / 88; Pulse 61; Resp 18; Pulse Ox 100% on R/A; ld1 07:17 Body Mass Index 32.74 (115.67 kg, 187.96 cm) ld1 07:17 Pain Scale: Adult ld1 ED Course: 06:52 Patient arrived in ED. [email or web address] 07:02 Kamar Radford MD is Attending Physician. rn 07:10 Arm band placed on Patient placed in an exam room, on a stretcher. ll1 07:11 Luisana Nur, ANA is Primary Nurse. ld1 07:14 Triage completed. ld1 07:19 Patient has correct armband on for positive identification. Placed in gown. Bed in low ld1 position. Call light in reach. Side rails up X2. dessert cup machine feeder on. Pulse ox on. NIBP on. Door closed. Noise minimized. Warm blanket given. 07:19 No provider procedures requiring assistance completed. ld1 07:26 CBC with Diff Sent. ld1 07:26 Basic Metabolic Panel Sent. ld1 07:26 Magnesium Sent. ld1 07:26 Inserted saline lock: 20 gauge in right forearm, using aseptic technique. Blood ld1 collected. 07:38 CT Head C Spine In Process Unspecified. EDMS 08:28 UPPER EXTREMITY VENOUS BILAT In Process Unspecified. EDMS 09:35 IV discontinued, intact, bleeding controlled, No redness/swelling at site. ld1 Administered Medications: 08:39 Drug: Decadron - Dexamethasone IVP 10 mg IVP once Route: IVP; Site: right forearm; ld1 08:39 Drug: Gabapentin PO 300 mg PO once Route: PO; ld1 Medication: 07:19 VIS not applicable for this client. ld1 Outcome: 09:21 Discharge ordered by . rn 09:35 Discharged to home ambulatory, with family, ld1 09:35 Condition: stable 09:35 Discharge instructions given to patient, family, Instructed on discharge instructions, follow up and referral plans. medication usage, Demonstrated understanding of instructions, follow-up care, medications, Prescriptions given X 2, :35 Patient left the ED. ld1 Signatures: Dispatcher [employer] EDMS Kamar Radford MD MD rn Lewis, Lynsay, RN RN ll1 Luisana Nur RN RN ld1 Belinda Gutierrez [email or web address]
[2023-07-15 14:44] VITALS: BP 150/88; TEMP 97.9; O2SAT 100
== END ==
LOC: ER 06:50
DX: G62.9 Polyneuropathy, unspecified (principal)
CPT/HCPCS: 36415; 70450; 72125; 80048; 83735; 85025; 93970; J1100